=== PATIENT | male | born 1965 | race Caucasian/White ===

== ENCOUNTER 2017-10-11 07:04 | Emergency (ER) | payer OTHER ==
[~2017-10-11] VITALS: Ht 185.4 cm; Wt 108.5 kg
[~2017-10-11 07:04] MED LIST: ALPR2TAB; ASPI-799; ATOR40TA68 PO; BUPR300T48; CLON-412 PO; CLOP75TA19; CYCL-319 PO; DIAZ10TA89; DIVA500T15 PO; HYDR-762; METO-335; TRAZ100T15 PO; ZIPR80CA22
[2017-10-11 07:07] VITALS: Ht 185.4 cm; Wt 108.5 kg
--- NOTE | 2017-10-11 08:01 | ERD ---
ER Documentation Chief Complaint Chief Complaint numbness all body on and off,poor apetite,dysuria 1 1/2 week HPI This is a 52-year-old male with a past medical history of attention, hypertension, hyperlipidemia, COPD, Anklylosing Spondylitis on Humira, coronary artery disease status post stenting on Plavix, bipolar disorder, anxiety on clonipin, presenting with transient intermittent waxing and waning paresthesias with general fatigue, malaise, decreased appetite and dysuria for 1-2 weeks. The patient also endorses intermittent palpitations. The patient reports a recent diagnosis of neuropathy and was started on gabapentin. Over the last few weeks to months, the patient reports migrating paresthesias in his legs and arms a face. There is no focality to his transient waxing and waning symptoms. He also reports left sided ptosis, but he is able open his eyelids now. He reports feeling anxious and having palpitations transiently as well. This is when he feels chest discomfort. The patient is currently chest pain free. The patient denies fever or chills. The patient has had no headache or vision changes. The patient does not endorse neck or back pain. The patient denies lightheadedness or dizziness. The patient has had no shortness of breath or trouble breathing. The patient denies nausea or vomiting. The patient denies abdominal pain or changes to bowel movements. The patient does report occasional discomfort with urination. He feels that his penis is purple. ROS All systems reviewed and are negative except as per history of present illness. Medications Home Meds Reported Medications Tiotropium [place]* (Spiriva*) 18 Mcg Cap.w.dev, 1 CAP INHALATION DAILY, #30 CAP 10/11/17 Tiotropium [place]* (Spiriva*) 18 Mcg Cap.w.dev, 1 CAP INHALATION DAILY, #30 CAP 10/11/17 Albuterol Sulfate* (Proair HFA*) 8.5 Gm Hfa.aer.ad, 2 PUFF INH Q4H Y for WHEEZING AND SOB, #1 INHALER 10/11/17 Pantoprazole* (Protonix*) 40 Mg Tablet.dr, 40 MG PO AC BREAKFAST, TAB 10/11/17 Nitroglycerin* (Nitroglycerin* SL) 0.4 Mg Tab.subl, 0.4 MG SL Q5MIN Y for CHEST PAIN, BOTTLE 10/11/17 Cyclobenzaprine Hcl* (Cyclobenzaprine Hcl*) 10 Mg Tablet, 10 MG PO BID Y for MUSCLE SPASMS, #60 TAB 10/11/17 Zolpidem Tartrate* (Zolpidem Tartrate*) 5 Mg Tablet, 5 MG PO QHS Y for INSOMNIA , #30 TAB 10/11/17 Adalimumab (Humira) 40 Mg/0.8 Ml Pen.ij.kit, 40 MG SQ EVERY OTHER WEEK 10/11/17 Atorvastatin* (Atorvastatin*) 40 Mg Tablet, 40 MG PO QHS, #30 TAB 10/11/17 Hydrocodone/Acetaminophen ([place] 10-325 Tablet) 1 Each Tablet, 1 EACH PO DAILY Y for SEVERE PAIN LEVEL 7-10, TAB 10/11/17 Clopidogrel Bisulfate (Clopidogrel) 75 Mg Tablet, 75 MG PO DAILY, #30 TAB 10/11/17 Bupropion Hcl* (Bupropion XL*) 300 Mg Tab.sr.24h, 300 MG PO QAM, TAB.SA 10/11/17 Metoprolol Succinate* (Toprol XL*) 50 Mg Tab.er.24h, 50 MG PO QAM, #30 TAB 10/11/17 Clonazepam* (Klonopin*) 1 Mg Tablet, 2 MG PO BID Y for QHS, TAB 10/11/17 Divalproex Sodium* (Depakote*) 500 Mg Tablet.dr, 500 MG PO BID, #120 TAB 10/11/17 Trazodone Hcl* (Trazodone Hcl*) 100 Mg Tablet, 100 MG PO QHS, #30 TAB 10/11/17 Discontinued Reported Medications Zolpidem Tartrate* (Ambien*) 10 Mg Tablet, 10 MG PO QHS Y for INSOMNIA, TAB 10/11/17 Bupropion Hcl* (Wellbutrin XL*) 300 Mg Tab.sr.24h 09/28/09 Diazepam (Valium) 10 Mg Tablet 09/28/09 Hydrocodone Bit-Acetaminophen* ([place]*) 1 Tab Tablet 09/28/09 Alprazolam* (Xanax*) 2 Mg Tablet 09/28/09 Ziprasidone* (Geodon*) 80 Mg Capsule 09/28/09 Metoprolol Succinate* (Toprol XL*) 25 Mg Tab.sr.24h 09/28/09 Aspirin/Calcium Carbonate/Mag (Aspir-Mox 325 Mg Tablet) 325 Mg Tablet 09/28/09 Clopidogrel Bisulfate (Plavix) 75 Mg Tablet 09/28/09 Discontinued Scripts Cyclobenzaprine Hcl* (Cyclobenzaprine Hcl*) 10 Mg Tablet, 10 MG PO QHS, #7 TAB Prov:MANDO RIVERS PA-C 10/12/16 Clonazepam* (Klonopin*) 1 Mg Tablet, 1 MG PO BID, #7 TAB Prov:MANDO RIVERSC 10/12/16 Trazodone Hcl* (Trazodone Hcl*) 100 Mg Tablet, 100 MG PO TID, #60 TAB Prov:MANDO RIVERS PA-C 10/12/16 Atorvastatin* (Atorvastatin*) 40 Mg Tablet, 40 MG PO QHS, #30 TAB Prov:MANDO RIVERS PA-C 10/12/16 Divalproex Sodium* (Divalproex ER*) 500 Mg Tab.er.24h, 500 MG PO BID, #30 TAB.SA Prov:MANDO RIVERS PA-C 10/12/16 Allergies Allergies: Coded Allergies: Penicillins (Verified Allergy, Severe, 10/11/17) ampicillin (Verified Allergy, Mild, ' GOT SICK", 09/28/09) PMhx/Soc History of Surgery: Yes (STENT PLACEMENT) Hx Neurological Disorder: No Hx Respiratory Disorders: No Hx Cardiac Disorders: Yes (HTN, HLD, CAD) Hx Psychiatric Problems: Yes (bipolar, anxiety) Hx Miscellaneous Medical Probl: Yes (Ankylosing Spondylitis) Hx Alcohol Use: No Hx Substance Use: No Hx Tobacco Use: No FmHx Family History: No coronary disease, No diabetes Physical Exam Vitals Vital Signs Date Time Temp Pulse Resp B/P Pulse Ox O2 Delivery O2 Flow Rate FiO2 10/11/17 14:08 98.0 65 14 120/70 97 Room Air 10/11/17 12:35 97.7 63 16 117/67 96 Room Air 10/11/17 07:07 97.6 74 18 174/88 98 Physical Exam Const: No apparent distress, well-developed, well-nourished Head: Normocephalic, Atraumatic Eyes: Normal Conjunctiva. Extraocular movements intact. Pupils equal, round and reactive to light ENT: Normal External Ears, Nose and Mouth. Neck: Full range of motion. No meningismus. Resp: Clear to auscultation bilaterally, No wheezes, rales or rhonchi Cardio: Regular rate and rhythm. No murmurs, rubs or gallops Abd: Soft, non tender, non distended. Normal bowel sounds : Normal appearance of his penis. Skin: No petechiae or rashes Back: No midline tenderness. No CVA tenderness Ext: No cyanosis, or edema Neur: Awake and alert, oriented 4. Cranial nerves intact. No facial droop. Transient ptosis that seems to intermittently resolve on its own during exam. PERRLA, EOMI. No anhydrosis. Normal strength, sensation and coordination. Psych: Anxious, tremulous Result Diagram: 10/11/1748 10/11/17 0848 Results 24 hrs Laboratory Tests Test 10/11/17 08:45 10/11/17 08:48 10/11/17 12:45 Urine Color YELLOW Urine Clarity CLEAR Urine pH 7.0 Urine Specific [place] 1.011 Urine Ketones NEGATIVEmg/dL Urine Nitrite NEGATIVEmg/dL Urine Bilirubin NEGATIVEmg/dL Urine Urobilinogen NEGATIVEmg/dL Urine Leukocyte Esterase NEGATIVELeu/ul Urine Hemoglobin NEGATIVEmg/dL Urine Glucose NEGATIVEmg/dL Urine Total Protein NEGATIVEmg/dl White Blood Count 6.010^3/ul Red Blood Count 5.1410^6/ul Hemoglobin 15.1g/dl Hematocrit 42.9% Mean Corpuscular Volume 83.5fl Mean Corpuscular Hemoglobin 29.4pg Mean Corpuscular Hemoglobin Concent 35.2g/dl Red Cell Distribution Width 11.2% Platelet Count 49865^3/UL Mean Platelet Volume 10.3fl Neutrophils % 48.9% Lymphocytes % 38.9% Monocytes % 9.2% Eosinophils % 2.2% Basophils % 0.5% Nucleated Red Blood Cells % 0.0/100WBC Neutrophils # 2.910^3/ul Lymphocytes # 2.310^3/ul Monocytes # 0.610^3/ul Eosinophils # 0.110^3/ul Basophils # 0.010^3/ul Nucleated Red Blood Cells # 0.010^3/ul Sodium Level 141mmol/L Potassium Level 4.4mmol/L Chloride Level 101mmol/L Carbon Dioxide Level 28mmol/L Anion Gap 16 Blood Urea Nitrogen 15mg/dl Creatinine 1.13mg/dl Glucose Level 99mg/dl Calcium Level 10.0mg/dl Magnesium Level 2.1mg/dl Total Bilirubin 0.5mg/dl Direct Bilirubin 0.00mg/dl Indirect Bilirubin 0.5mg/dl Aspartate Amino Transf (AST/SGOT) 43IU/L Alanine Aminotransferase (ALT/SGPT) 44IU/L Alkaline Phosphatase 77IU/L Troponin I 0.016ng/ml < 0.012ng/ml Total Protein 8.6g/dl Albumin 4.7g/dl Globulin 3.90g/dl Albumin/Globulin Ratio 1.20 Thyroid Stimulating Hormone (TSH) 2.060MIU/L Free Thyroxine 1.13ng/dl Current Medications Medications (Trade) Dose Ordered Sig/Gerard Route PRN Reason Start Time Stop Time Status Last Admin Dose Admin Lorazepam (Ativan) 1 mg ONCE ONCE PO 10/11/17 11:30 10/11/17 11:31 DC 10/11/17 11:24 Procedures/[facility] MDM The patient's presentation warrants further investigation. The patient has a cardiac history and does present with palpitations. His symptoms are consistent with anxiety, but a cardiac workup will be performed. The patient reports transient migrating paresthesias. He does not have focal deficits on exam. His symptoms are not consistent with cerebral ischemia. I do not feel that a CT head is required at this time. The patient does report ptosis, but it appeared to go away at times during the exam. Additionally, there is no other evidence of a CN III palsy. The patient did have urinary concerns. A UTI was sent off. LABS The patient's blood work was obtained and reviewed. The patient's CBC shows no leukocytosis and no left shift. The patient is afebrile and does not appear systemically ill. I do not suspect a systemic infection. The patient is not anemic today. The patient's platelet count is unremarkable. The patient's CMP shows no signs of metabolic or electrolyte emergencies. The patient has unremarkable renal and hepatic function testing. The patient's thyroid studies were unremarkable. His troponin was negative x 2. A UA was negative for hematuria or infection. EKG EKG read by me: Rate/Rhythm: Regular rate and rhythm at a rate of 64 bpm Intervals: Normal [place]: Normal Impression: No evidence of ischemia or arrhythmia IMAGING CXR FINDINGS: The heart and mediastinum are within normal limits. The lungs are clear. There is no pleural effusion or pneumothorax. IMPRESSION: No acute disease. Electronically viewed and signed by .Chi Guzman MD, on 10/11/2017 12: 46 TREATMENT/DISPOSITION I am concerned about anxiety in this patient. He was given ativan with significant improvement of all of his symptoms. He already has benzodiazepines that have been prescribed to him. I did not feel that a prescription of ativan was warranted. The patient's HEART score is less that or equal to 3. The patient's troponin and EKG are reassuring. This stratifies the patient into the low risk (<1%) group for an major adverse cardiac event within the next 30 days. I have low suspicion for acute coronary syndrome. The patient's chest xray does not reveal pneumonia or pneumothorax or pleural effusions or pulmonary edema. She does not have a widened mediastinum and does not have signs or symptoms concerning for thoracic aortic aneurysm or dissection. She does not have pneumomediastinum or signs concerning for esophageal tear or rupture. She has no clinical or radiographic signs of paricardial effusion or tamponade. She does not have pneumoperitoneum and I have decreased suspicion of viscus perforation and a possibility of referred pain. The patient does not have a history of heart failure and I have low suspicion for this. The patient does not have a diagnosis of COPD and is not wheezing today. I have low suspicion for PE. She is not tachypneic or hypoxic. She is breathing comfortably and without pleuritc pain. Her heart rate is unremarkable. She is not on hormonal therapy. She has no history of clotting or bleeding disorders. She has no calf tenderness. She has had no hemoptysis. Shared decision making was enacted. The risks and benefits of admission and discharge were discussed with the patient and it was ultimately decided that the patient would be discharged with close outpatient follow up and evaluationg for functional testing within 72 hours. At this time, I feel that the patient stable for discharge. The patient will need follow-up with his primary care physician in 2-3 days. The patient will be given strict precautions with which to return to the emergency department. The patient's blood pressure was elevated at greater than 120/80 while in the emergency department. The patient was otherwise stable with no evidence of hypertensive urgency or emergency or end organ damage. The patient does not require admission for blood pressure control. I have discussed with the patient the risks of hypertension. I have advised the patient to follow up with the primary care physician for outpatient monitoring and treatment for hypertension in 2-3 days. I have instructed the patient to return to the ER for any new or worsening symptoms including chest pain, shortness of breath, headache, blurred vision, confusion, nausea, vomiting or LOC. Disclaimer: Inadvertent spelling and grammatical errors are likely due to EHR/ dictation software use and do not reflect on the overall quality of patient care. Note that the electronic time recorded on this note does not necessarily reflect the actual time of the patient encounter. Departure Diagnosis: Primary Impression: Palpitations Additional Impressions: Paresthesias Dysuria Myalgia Condition: JOSE ENRIQUE Echeverria MD Oct 11, 2017 08:00
[2017-10-11 09:02] LABS: BASOPHILS % 0.5 % (0.0-2.0); EOSINOPHILS # 0.1 10^3/ul (0.0-0.5); EOSINOPHILS % 2.2 % (0.0-7.0); HEMATOCRIT 42.9 % (42.0-52.0); HEMOGLOBIN 15.1 g/dl (14.0-18.0); LYMPHOCYTES # 2.3 10^3/ul (0.8-2.9); LYMPHOCYTES % 38.9 % (15.0-51.0); MEAN CORPUSCULAR HEMOGLOBIN 29.4 pg (29.0-33.0); MEAN CORPUSCULAR HGB CONC 35.2 g/dl (32.0-37.0); MEAN CORPUSCULAR VOLUME 83.5 fl (82.0-101.0); MEAN PLATELET VOLUME 10.3 fl (7.4-10.4); MONOCYTE # 0.6 10^3/ul (0.3-0.9); MONOCYTES % 9.2 % (0.0-11.0); NEUTROPHIL # 2.9 10^3/ul (1.6-7.5); NEUTROPHILS % 48.9 % (39.0-77.0); PLATELET COUNT 192 10^3/UL (140-415); RED BLOOD COUNT 5.14 10^6/ul (4.70-6.10); RED CELL DISTRIBUTION WIDTH 11.2 % (11.5-14.5)
[2017-10-11 09:05] LABS: ADD UMIC NO; UR ASCORBIC ACID NEGATIVE (NEGATIVE); UR BILIRUBIN (Dip) NEGATIVE (NEGATIVE); UR BLOOD (Dip) NEGATIVE (NEGATIVE); UR CLARITY CLEAR (CLEAR); UR COLOR YELLOW (YELLOW); UR GLUCOSE (Dip) NEGATIVE (NEGATIVE); UR KETONES (Dip) NEGATIVE (NEGATIVE); UR LEUKOCYTE ESTERASE (Dip) NEGATIVE Leu/ul (NEGATIVE); UR NITRITE (Dip) NEGATIVE (NEGATIVE); UR SPECIFIC GRAVITY (Dip) 1.011 (1.003-1.030); UR TOTAL PROTEIN (Dip) NEGATIVE (NEGATIVE); UR UROBILINOGEN (Dip) NEGATIVE (NEGATIVE)
[2017-10-11] MEDS ORDERED: TRAZ100T15 PO (09:21)
[2017-10-11] MEDS ORDERED: DIVA500T7 PO (09:21)
[2017-10-11] MEDS ORDERED: ZOLP10TA PO (09:22)
[2017-10-11] MEDS ORDERED: CLON-412 PO (09:22)
[2017-10-11] MEDS ORDERED: BUPR300T36 PO (09:23)
[2017-10-11] MEDS ORDERED: METO-319 PO (09:23)
[2017-10-11] MEDS ORDERED: CLOP75TA27 PO (09:27)
[2017-10-11] MEDS ORDERED: HYDR-902 PO (09:29)
[2017-10-11 09:59] LABS: ALBUMIN 4.7 g/dl (3.3-4.9); ALBUMIN/GLOBULIN RATIO 1.2; BILIRUBIN,INDIRECT 0.5 mg/dl (0-1.1); BILIRUBIN,TOTAL 0.5 mg/dl (0.2-1.3); CREATININE 1.13 mg/dl (0.61-1.24); MAGNESIUM 2.1 mg/dl (1.7-2.5); POTASSIUM 4.4 mmol/L (3.5-5.1); TOTAL PROTEIN 8.6 g/dl (6.1-8.1)
[2017-10-11 10:11] LABS: TROPONIN-I 0.016 ng/ml (0.00-0.12)
[2017-10-11 10:29] LABS: THYROID STIMULATING HORMONE 2.06 MIU/L (0.465-4.680)
[2017-10-11] MEDS ORDERED: ADAL40PE SQ (10:36)
[2017-10-11] MEDS ORDERED: ATOR40TA68 PO (10:36)
[2017-10-11] MEDS ORDERED: LORAZEPAM 1 MG TAB PO ONE (11:30)
[2017-10-11] MEDS ORDERED: ZOLP5TAB7 PO (12:11)
[2017-10-11] MEDS ORDERED: CYCL-319 PO (12:12)
[2017-10-11] MEDS ORDERED: NITR0.4T32 SL (12:17)
[2017-10-11] MEDS ORDERED: PANT40TA3 PO (12:19)
[2017-10-11] MEDS ORDERED: ALBU8.5H3 INH (12:29)
[2017-10-11] MEDS ORDERED: TIOT18CA INHALATION ×2 (12:29→12:30)
--- NOTE | 2017-10-11 12:46 | RADRPT ---
PROCEDURE: XR Chest. CLINICAL INDICATION: chest pain, palpitations TECHNIQUE: Single frontal view of the chest was obtained COMPARISON: [facility] PORT CHEST 09/28/2009 FINDINGS: The heart and mediastinum are within normal limits. The lungs are clear. There is no pleural effusion or pneumothorax. RPTAT: AA IMPRESSION: No acute disease. .Chi Guzman MD, MD Date Time Electronically viewed and signed by .Chi Guzman MD, MD on 10/11/2017 12:46 .S/
[2017-10-11 14:08] VITALS: BP 120/70; PULSE 65; RESP 14; TEMP 98
== END 2017-10-11 14:11 | disposition home or self-care (01) ==
LOC: E/R 07:04
DX: R00.2 Palpitations (principal); I10 Essential (primary) hypertension; J44.9 Chronic obstructive pulmonary disease, unspecified; I25.10 Atherosclerotic heart disease of native coronary artery without angina pectoris; R40.2142 Coma scale, eyes open, spontaneous, at arrival to emergency department; R40.2362 Coma scale, best motor response, obeys commands, at arrival to emergency department; R40.2252 Coma scale, best verbal response, oriented, at arrival to emergency department; R30.0 Dysuria; M79.1 Myalgia; Z79.82 Long term (current) use of aspirin; Z79.01 Long term (current) use of anticoagulants; Z98.61 Coronary angioplasty status
CPT/HCPCS: 36415; 71010; 80053; 81003; 83735; 84439; 84443; 84484; 85025; 93005